=== PATIENT | female | born 2000 | race Caucasian/White ===

== ENCOUNTER 2024-10-28 18:31 | Emergency (ER) | payer OTHER ==
[~2024-10-28] VITALS: Ht 152.4 cm; Wt 93.9 kg
[2024-10-28 20:56] LABS: CORONAVIRUS COVID-19 AG NEGATIVE (NEGATIVE); INFLUENZA A AG NEGATIVE (NEGATIVE); INFLUENZA B AG NEGATIVE (NEGATIVE)
[2024-10-28 21:29] VITALS: BP 148/105
== END 2024-10-28 21:29 | disposition home or self-care (01) ==
LOC: ED 18:31
PROVIDERS: Emergency Medicine
DX: J06.9 Acute upper respiratory infection, unspecified (principal)
CPT/HCPCS: 36415; 99283

== ENCOUNTER 2025-06-22 18:52 | Emergency (ER) | payer OTHER ==
[~2025-06-22] VITALS: Ht 152.4 cm; Wt 92.7 kg
[2025-06-22 20:19] LABS: INFLUENZA B NAA NEGATIVE (NEGATIVE); RESPIRATORY SYNCYTIAL VIR NAA NEGATIVE (NEGATIVE)
[2025-06-22 20:33] VITALS: BP 139/86
== END 2025-06-22 20:34 | disposition home or self-care (01) ==
LOC: ED 18:52
PROVIDERS: Family Medicine
DX: J02.9 Acute pharyngitis, unspecified (principal)
CPT/HCPCS: 87502; 87651; 99283; U0002